=== PATIENT | female | born 1985 | race Caucasian/White ===

== ENCOUNTER → 2020-05-26 | Outpatient (CLI) | payer BC ==
[~2020-05-26] MED LIST: FERR325T18 PO; HYDR-1067 PO; LABE200T6 PO; MEDR10TA3 PO; ONDA4TAB10 PO; PREN1TAB56 PO; SENN-190 PO
[2020-05-26 14:13] LABS: BASOPHILS % (AUTO) 1 % (0-1); EOSINOPHILS % (AUTO) 2 % (1-7); LYMPHOCYTES % (AUTO) 26 % (22-44); MEAN CORPUSCULAR HGB CONC 31.7 g/dL (32.4-35.8); MEAN PLATELET VOLUME 9.9 fL (7.4-10.4); MONOCYTES % (AUTO) 6 % (2-9); NEUTROPHILS % (AUTO) 65 % (42-75); PLATELET COUNT 376 x10^3/uL (130-400); RED BLOOD COUNT 3.54 x10^6/uL (3.82-5.3); RED CELL DISTRIBUTION WIDTH 19.2 % (9.6-15.2)
[2020-05-26 14:15] LABS: MD MORPH REVIEW ONLY
[2020-05-26 14:20] LABS: ANION GAP 9 mmol/L (5-15); CALCIUM 8.1 mg/dL (8.5-10.1); CHLORIDE 109 mmol/L (98-107)
[2020-05-26 15:14] LABS: HYPOCHROMIA 1+
[2020-05-26 15:15] LABS: ANISOCYTOSIS 2+; MICROCYTOSIS 2+; TEAR DROPS 1+
[2020-05-26 15:16] LABS: POLYCHROMASIA 1+
[2020-05-26 15:17] LABS: <PLATELET ESTIMATE> ADEQUATE; <PLT MORPHOLOGY> NORMAL PLT MORPH
== END | disposition home or self-care (01) ==
LOC: STAR 12:57
PROVIDERS: ATTEND Obstetrics & Gynecology
DX: Z01.818 Encounter for other preprocedural examination (principal); N93.9 Abnormal uterine and vaginal bleeding, unspecified; D25.9 Leiomyoma of uterus, unspecified; Z20.822 Contact with and (suspected) exposure to COVID-19
CPT/HCPCS: 71046; 80048; 84703; 85025; 87635; 93005

== ENCOUNTER 2020-06-01 09:41 | Day surgery (SDC) | payer BC ==
[~2020-06-01] VITALS: Ht 165.1 cm; Wt 131.1 kg
[2020-06-01 10:14] VITALS: BP 156/97
[2020-06-01] MEDS ORDERED: CHLORHEXIDINE 15 ML UDC ONE (10:18)
[2020-06-01] MEDS ORDERED: LACTATED RINGERS 1,000 ML IV SCH (10:30)
[2020-06-01] MEDS ORDERED: CHLORHEXIDINE 15 ML UDC MM ONE (10:30)
[2020-06-01 10:45] LABS: HCG UR SG 1.023 (1.003-1.030)
[2020-06-01] MEDS ORDERED: PROPOFOL 10 MG/ML, 20ML ONE (10:51)
[2020-06-01] MEDS ORDERED: GLYCOPYRROLATE 0.2MG/1ML, 5ML ONE (10:51)
[2020-06-01] MEDS ORDERED: NEOSTIGMINE 1 MG/ML, 10ML ONE (10:51)
[2020-06-01] MEDS ORDERED: FENTANYL PF 100 MCG/2ML ONE ×4 (10:51→14:36)
[2020-06-01] MEDS ORDERED: SUCCINYLCHOLINE 20 MG/ML, 10ML ONE (10:51)
[2020-06-01] MEDS ORDERED: CEFAZOLIN 1,000 MG ONE (10:51)
[2020-06-01] MEDS ORDERED: ONDANSETRON 2MG/ML, 2ML ONE (10:51)
[2020-06-01] MEDS ORDERED: MIDAZOLAM 1 MG/ML, 2ML ONE ×2 (10:51→10:56)
[2020-06-01] MEDS ORDERED: ROCURONIUM 10MG/ML,5ML ONE (10:51)
[2020-06-01] MEDS ORDERED: EPINEPHRINE 1 MG/ML, 1ML ONE (11:09)
[2020-06-01] MEDS ORDERED: BUPIVACAINE/PF 0.25% ONE (11:09)
[2020-06-01] MEDS ORDERED: INDIGO CARMINE 0.8%, 5ML ONE (11:20)
[2020-06-01] MEDS ORDERED: DEXAMETHASONE 4 MG/ML, 5ML ONE (11:57)
[2020-06-01] MEDS ORDERED: EPHEDRINE 50 MG/ML, 1ML ONE (11:57)
[2020-06-01] MEDS ORDERED: HYDROcodone/APAP 7.5-325MG/15ML UDC PO PRN (13:00)
[2020-06-01] MEDS ORDERED: KETOROLAC 30 MG/1 ML IVPush PRN (13:00)
[2020-06-01] MEDS ORDERED: PROMETHAZINE 25 MG/ML, 1ML IVPush PRN (13:00)
[2020-06-01] MEDS ORDERED: HYDROmorphone 1 MG/ML, 1ML INJ IVPush PRN (13:00)
[2020-06-01] MEDS ORDERED: OXYcodone 5 MG/5 ML ORAL.SOL UDC PO PRN (13:00)
[2020-06-01] MEDS ORDERED: MEPERIDINE/PF 25MG/0.5ML IVPush PRN (13:00)
[2020-06-01] MEDS ORDERED: OXYcodone 5 MG/5 ML ORAL.SOL UDC ONE (14:37)
[2020-06-01] MEDS: FENTANYL PF 100 MCG/2ML IV PRN ×2 (14:40→14:45)
[2020-06-01] MEDS ORDERED: HYDROmorphone 1 MG/ML, 1ML INJ ONE (15:01)
== END 2020-06-01 16:30 | disposition home or self-care (01) ==
LOC: OUT 09:41
PROVIDERS: ATTEND Obstetrics & Gynecology
DX: N93.9 Abnormal uterine and vaginal bleeding, unspecified (principal); N84.0 Polyp of corpus uteri; D25.9 Leiomyoma of uterus, unspecified; N73.6 Female pelvic peritoneal adhesions (postinfective); D50.0 Iron deficiency anemia secondary to blood loss (chronic); F41.9 Anxiety disorder, unspecified; I10 Essential (primary) hypertension; E66.01 Morbid (severe) obesity due to excess calories; Z79.899 Other long term (current) drug therapy; Z88.2 Allergy status to sulfonamides; Z98.51 Tubal ligation status
CPT/HCPCS: 58552; 81025; 88307; J0171; J0330; J0690; J1100; J1170; J2250; J2405; J2704; J2710; J3010